=== PATIENT | male | born 1975 | race Two or more races ===

== ENCOUNTER 2022-08-14 00:47 | Emergency (ER) | payer OTHER ==
[~2022-08-14] VITALS: Ht 167.6 cm; Wt 86.2 kg
[2022-08-14 01:00] VITALS: BP 148/78
[2022-08-14] MEDS ORDERED: NALO1DIS2 IM (01:11)
== END 2022-08-14 03:02 | disposition home or self-care (01) ==
LOC: ER 00:49
DX: T40.1X1A Poisoning by heroin, accidental (unintentional), initial encounter (principal); R06.81 Apnea, not elsewhere classified; Z79.899 Other long term (current) drug therapy; Y92.89 Other specified places as the place of occurrence of the external cause

== ENCOUNTER 2022-12-01 13:48 | Emergency (ER) | payer OTHER ==
[~2022-12-01] VITALS: Ht 177.8 cm; Wt 92.1 kg
[~2022-12-01 13:48] MED LIST: NALO1DIS2 IM
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
[2022-12-01] MEDS ORDERED: HYDROCODONE/APAP 5/325MG TABLET ONE (14:26)
[2022-12-01] MEDS ORDERED: IBUPROFEN 600 MG TABLET ONE (14:26)
[2022-12-01] MEDS ORDERED: HYDROCODONE/APAP 5/325MG TABLET PO ONE (14:30)
[2022-12-01] MEDS ORDERED: IBUPROFEN 600 MG TABLET PO ONE (14:30)
--- NOTE | 2022-12-01 14:30 | NUR ---
patient taken to ct
[2022-12-01] MEDS ORDERED: KETOROLAC TROMETHAMINE INJ 60 MG/2 ML VIAL IM ONE ×2 (15:23→15:30)
[2022-12-01] MEDS ORDERED: IBUP-1953 PO (16:32)
[2022-12-01] MEDS ORDERED: TRAM50TA2 PO (16:32)
--- NOTE | 2022-12-01 18:38 | NUR ---
Patient discharged to home in stable condition. Written and verbal after care instructions given. Patient verbalizes understanding of instruction.
[2022-12-01 18:39] VITALS: BP 121/59
== END 2022-12-01 18:40 | disposition home or self-care (01) ==
LOC: ER 13:54
DX: S20.211A Contusion of right front wall of thorax, initial encounter (principal); S80.11XA Contusion of right lower leg, initial encounter; Z60.2 Problems related to living alone; V23.49XA Other motorcycle driver injured in collision with car, pick-up truck or van in traffic accident, initial encounter; Y93.89 Activity, other specified; Y92.89 Other specified places as the place of occurrence of the external cause; Y99.8 Other external cause status
CPT/HCPCS: 99285; 71250; 96372; 72170; 71100; J1885